=== PATIENT | female | born 1985 | race Caucasian/White ===

== ENCOUNTER 2016-11-26 16:19 | Emergency (ER) | payer MEDICAID, OTHER ==
[~2016-11-26] VITALS: Ht 162.6 cm; Wt 47.4 kg
[~2016-11-26 16:19] MED LIST: AMOX875 PO; FLUT50SP EACH NARE
[2016-11-26 16:38] VITALS: BP 112/68; PULSE 86; RESP 16; TEMP 98.3; O2SAT 100
[2016-11-26] MEDS ORDERED: SODIUM CHLOR 0.9% 1000 ML INJ 1,000 ML IV ONE (17:16)
--- NOTE | 2016-11-26 17:19 | PD ---
HPI Chief Complaint: Headache Time Seen by Provider: 17:16 Travel History International Travel<30 days: No Contact w/Intl Traveler<30days: No Traveled to known affect area: No History of Present Illness HPI 31-year-old female with history of migraine headaches, presents to the ER today for a 9 out of 10 headache that started on its own at around 2 PM accompanied by nausea, blurry vision, and photophobia. She denies any fevers, vomiting, stiff neck, or any other symptoms. She states that she has had migraine headaches in the past but usually they are not this bad. She denies any sick contacts. Modifying Factors: None Associated Signs & Symptoms: Headache, nausea, blurry vision Risk Factors: History of migraine headaches PFSH Past Medical History Medical History: Denies Significant Hx Diminished Hearing: No Immunizations Current: Yes Tetanus Vaccination: < 5 Years Influenza Vaccination: No ?: Not LMP: no menses on control and breast feeds : 2 Para: 1 Miscarriage: 1 Ovarian Cysts: Yes Past Surgical History Surgical History: No Previous Surgery Social History Alcohol Use: Yes (occ) Tobacco Use: No Substance Use: No Allergies-Medications (Allergen,Severity, Reaction): Coded Allergies: No Known Allergies (Verified , 11/26/16) Reported Meds & Prescriptions Reported Meds & Active Scripts Active Review of Systems Except as stated in HPI: all other systems reviewed are Neg Physical Exam Narrative GENERAL: Well-developed young white female patient in moderate distress. Awake and oriented 3. SKIN: Focused skin assessment warm/dry. HEAD: Atraumatic. Normocephalic. EYES: Pupils equal and round. No scleral icterus. No injection or drainage. Pupils are equal, round, reactive to light bilaterally. ENT: No nasal bleeding or discharge. Mucous membranes pink and moist. NECK: Trachea midline. No JVD. CARDIOVASCULAR: Regular rate and rhythm. No murmur appreciated. RESPIRATORY: No accessory muscle use. Clear to auscultation. Breath sounds equal bilaterally. GASTROINTESTINAL: Abdomen soft, non-tender, nondistended. Hepatic and splenic margins not palpable. MUSCULOSKELETAL: No obvious deformities. No clubbing. No cyanosis. No edema. NEUROLOGICAL: Awake and alert. No obvious cranial nerve deficits. Motor grossly within normal limits. Normal speech. PSYCHIATRIC: Appropriate mood and affect; insight and judgment normal. Data Data Last Documented VS Vital Signs Date Time Temp Pulse Resp B/P Pulse Ox O2 Delivery O2 Flow Rate FiO2 11/26/16 18:31 100 11/26/16 17:00 20 11/26/16 16:38 98.3 86 112/68 Orders Complete Blood Count With Diff (11/26/16 17:16) Comprehensive Metabolic Panel (11/26/16 17:16) Ct Brain W/O Iv Contrast(Rout) (11/26/16 17:16) Ecg Monitoring (11/26/16 17:16) Iv Access Insert/Monitor (11/26/16 17:16) Oximetry (11/26/16 17:16) Sodium Chloride 0.9% Flush (Ns Flush) (11/26/16 17:30) Diphenhydramine Inj (Benadryl Inj) (11/26/16 17:30) Metoclopramide Inj (Reglan Inj) (11/26/16 17:30) Sodium Chlor 0.9% 1000 Ml Inj (Ns 1000 M (11/26/16 17:16) Ed Urine Pregnancytest Poc (11/26/16 17:16) Urinalysis - C+S If Indicated (11/26/16 17:19) Labs Laboratory Tests Test 11/26/16 11/26/16 17:35 18:05 White Blood Count 6.6 TH/MM3 Red Blood Count 4.79 MIL/MM3 Hemoglobin 14.4 GM/DL Hematocrit 42.5 % Mean Corpuscular Volume 88.7 FL Mean Corpuscular Hemoglobin 30.0 PG Mean Corpuscular Hemoglobin 33.9 % Concent Red Cell Distribution Width 11.8 % Platelet Count 352 TH/MM3 Mean Platelet Volume 7.9 FL Neutrophils (%) (Auto) 80.2 % Lymphocytes (%) (Auto) 13.6 % Monocytes (%) (Auto) 4.7 % Eosinophils (%) (Auto) 1.2 % Basophils (%) (Auto) 0.3 % Neutrophils # (Auto) 5.3 TH/MM3 Lymphocytes # (Auto) 0.9 TH/MM3 Monocytes # (Auto) 0.3 TH/MM3 Eosinophils # (Auto) 0.1 TH/MM3 Basophils # (Auto) 0.0 TH/MM3 CBC Comment DIFF FINAL Differential Comment Sodium Level 142 MEQ/L Potassium Level 4.0 MEQ/L Chloride Level 106 MEQ/L Carbon Dioxide Level 26.5 MEQ/L Anion Gap 10 MEQ/L Blood Urea Nitrogen 19 MG/DL Creatinine 0.72 MG/DL Estimat Glomerular Filtration 96 ML/MIN Rate Random Glucose 97 MG/DL Calcium Level 9.0 MG/DL Total Bilirubin 0.7 MG/DL Aspartate Amino Transf 15 U/L (AST/SGOT) Alanine Aminotransferase 23 U/L (ALT/SGPT) Alkaline Phosphatase 101 U/L Total Protein 8.4 GM/DL Albumin 4.7 GM/DL Urine Color YELLOW Urine Turbidity HAZY Urine pH 6.0 Urine Specific [place] 1.027 Urine Protein NEG mg/dL Urine Glucose (UA) NEG mg/dL Urine Ketones 80 OR GREATER mg/dL Urine Occult Blood SMALL Urine Nitrite NEG Urine Bilirubin NEG Urine Leukocyte Esterase NEG Urine RBC 0-3 /hpf Urine WBC 0-2 /hpf Urine Squamous Epithelial 0-5 /hpf Cells Urine Mucus RARE /lpf Microscopic Urinalysis Comment CULT NOT INDICATED MDM Medical Decision Making Medical Screen Exam Complete: Yes Emergency Medical Condition: Yes Medical Record Reviewed: Yes Interpretation(s) Laboratory Tests Test 11/26/16 11/26/16 17:35 18:05 Neutrophils (%) (Auto) 80.2 % (16.0-70.0) Lymphocytes # (Auto) 0.9 TH/MM3 (1.0-4.8) Blood Urea Nitrogen 19 MG/DL (7-18) Total Protein 8.4 GM/DL (6.4-8.2) Urine Turbidity HAZY (CLEAR) Urine Ketones 80 OR GREATER mg/dL (NEG) Urine Occult Blood SMALL (NEG) Last [address] 11/26/16 [id number] Signed Impressions: Service Date/Time: Saturday, November 26, 2016 18:39 - CONCLUSION: No acute intracranial abnormality. Mild sinus disease. Lb Osullivan MD Differential Diagnosis Headache, nauseamigraine headaches versus dehydration versus viral syndrome versus meningitis versus acute intracranial processes Narrative Course Lab work did not indicate significant signs of sepsis, dehydration, or electrolyte abnormalities. Patient was given IV fluids, Reglan, and Benadryl in the ER. She states she is breast-feeding and I have warned her that Benadryl can cause sedation and that she probably should refrain from breast- feeding for the next day if she wants to wait that a factor for her baby. On reevaluation at 7 PM, she is feeling much improved. At this point, I have discussed the findings with her and CAT scan has returned showing a signs of acute intracranial processes. I think likelihood of meningitis or other acute intra-abdominal processes not picked up currently should be low. However, have discussed lumbar puncture with her and at this time, patient states that she wants to defer this study considering she is feeling much improved with just the migraine treatment. She states understanding that acute processes can be missed without further studies. The plan and the risks were discussed with the patient and she states understanding. Diagnosis Primary Impression: Migraine headache Med/Other Pt SpecificInfo: Prescription(s) given Scripts Ibuprofen (Motrin Ib)200 Mg [id number] Mg PO Q6H PRN (HEADACHE) #20 TAB Ref 0 Prov:Steven Ruvalcaba MD 11/26/16 Metoclopramide (Reglan)10 Mg Tab10 Mg PO QID PRN (HEADACHE) #20 TAB Ref 0 Prov:Steven Ruvalcaba MD 11/26/16 Disposition: 01 DISCHARGE HOME Condition: Stable Steven Ruvalcaba MD Nov 26, 2016 17:19
[2016-11-26] MEDS ORDERED: SODIUM CHLORIDE 0.9% FLUSH 10 ML FLUSH IVF PRN (17:30)
[2016-11-26] MEDS ORDERED: METOCLOPRAMIDE HCL 10 MG/2 ML VIAL IVP ONE (17:30)
[2016-11-26] MEDS ORDERED: diphenhydrAMINE HCL 50 MG/ML VIAL IVP ONE (17:30)
[2016-11-26 17:52] LABS: AUTOMATED NEUTROPHIL # 5.3 TH/MM3 (1.8-7.7); BASOPHIL % 0.3 % (0.0-2.0); EOSINOPHIL # 0.1 TH/MM3 (0-0.4); EOSINOPHIL % 1.2 % (0.0-4.0); HEMATOCRIT 42.5 % (35.0-46.0); HEMO FLAGS DIFF FINAL; LYMPH % 13.6 % (9.0-44.0); LYMPHOCYTE # 0.9 TH/MM3 (1.0-4.8); MEAN CELL VOLUME 88.7 FL (80.0-100.0); MEAN CORPUSCULAR HGB CONC 33.9 % (32.0-36.0); MONO % 4.7 % (0.0-8.0); NEUT % 80.2 % (16.0-70.0); PLATELET COUNT 352 TH/MM3 (150-450); RED BLOOD COUNT 4.79 MIL/MM3 (4.00-5.30); RED CELL DISTRIBUTION WIDTH 11.8 % (11.6-17.2); WHITE BLOOD COUNT 6.6 TH/MM3 (4.0-11.0)
[2016-11-26 18:00] LABS: CHLORIDE 106 MEQ/L (98-107); SODIUM (NA) 142 MEQ/L (136-145)
[2016-11-26 18:03] LABS: ANION GAP 10 MEQ/L (5-15); BICARBONATE 26.5 MEQ/L (21.0-32.0)
[2016-11-26 18:04] LABS: BLOOD UREA NITROGEN 19 MG/DL (7-18)
[2016-11-26 18:07] LABS: ALT (GPT) 23 U/L (10-53); AST (GOT) 15 U/L (15-37); GLOMERULAR FILTRATION RATE 96 ML/MIN (>89)
[2016-11-26 18:08] LABS: TOTAL BILIRUBIN ADULT 0.7 MG/DL (0.2-1.0)
[2016-11-26 18:09] LABS: ALKALINE PHOSPHATASE 101 U/L (45-117)
[2016-11-26 18:14] LABS: BLOOD, URINE SMALL (NEG); GLUCOSE,URINE NEG (NEG); NITRITE,URINE NEG (NEG)
[2016-11-26 18:21] LABS: KETONE, URINE 80 OR GREATER mg/dL (NEG)
[2016-11-26 18:22] LABS: COMMENT (UR) CULT NOT INDICATED; CULTURE IF INDICATED CULT NOT INDICATED; MUCUS URINE RARE /lpf (OCC); RBC, URINE 0-3 /hpf (0-3); SQUAMOUS EPITHELIAL CELL URINE 0-5 /hpf (0-5); URINE COLOR YELLOW (YELLW/STRAW); WBC, URINE 0-2 /hpf (0-5)
[2016-11-26 18:31] VITALS: O2SAT 100
--- NOTE | 2016-11-26 18:56 | RADHPO ---
EXAM DATE/TIME: 11/26/2016 18:39 [facility] COMPARISON: No previous studies available for comparison. INDICATIONS : Headache with blurred vision and dizziness. RADIATION DOSE: 60.35 CTDIvol (mGy) MEDICAL HISTORY : None SURGICAL HISTORY : None. ENCOUNTER: Initial ACUITY: 1 day PAIN SCALE: 9/10 LOCATION: frontal TECHNIQUE: Multiple contiguous axial images were obtained of the head. Using automated exposure control and adj ustment of the mA and/or kV according to patient size, radiation dose was kept as low as reasonably a chievable to obtain optimal diagnostic quality images. FINDINGS: CEREBRUM: The ventricles are normal for age. No evidence of midline shift, mass lesion, hemorrhage or acute in farction. No extra-axial fluid collections are seen. POSTERIOR FOSSA: The cerebellum and brainstem are intact. The 4th ventricle is midline. The cerebellopontine angle i s unremarkable. EXTRACRANIAL: Mild mucoperiosteal thickening seen of the paranasal sinuses. Small amount of debris seen in the righ t maxillary air cell. SKULL: The calvaria is intact. No evidence of skull fracture. CONCLUSION: No acute intracranial abnormality. Mild sinus disease. Lb Osullivan MD on November 26, 2016 at 18:53 Board Certified Radiologist. This report was verified electronically.
[2016-11-26] MEDS ORDERED: REGL10TA5 PO (19:13)
[2016-11-26] MEDS ORDERED: MOTR200T4 PO (19:13)
[2016-11-26 19:30] VITALS: BP 100/71
== END 2016-11-26 19:32 | disposition home or self-care (01) ==
LOC: PHED 16:19
DX: G43.909 Migraine, unspecified, not intractable, without status migrainosus (principal)
CPT/HCPCS: 70450; 80053; 81001; 84703; 85025; 96361; 96374; 96375; 99284; J1200; J2765; J7030

== ENCOUNTER 2017-11-09 08:27 | Emergency (ER) | payer SELFPAY ==
[~2017-11-09] VITALS: Ht 162.6 cm; Wt 52.6 kg
[~2017-11-09 08:27] MED LIST changes: -AMOX875 PO; -FLUT50SP EACH NARE; +MOTR200T4 PO; +REGL10TA5 PO
[2017-11-09 08:35] VITALS: BP 113/66; PULSE 88; RESP 16; TEMP 98.4; O2SAT 98
[2017-11-09] MEDS ORDERED: CHERSYP2 PO (09:07)
[2017-11-09] MEDS ORDERED: ZITHTAB PO (09:07)
--- NOTE | 2017-11-09 09:08 | PD ---
HPI Chief Complaint: Cold / Flu Symptoms Time Seen by Provider: 09:04 Travel History International Travel<30 days: No Contact w/Intl Traveler<30days: No Traveled to known affect area: No History of Present Illness HPI Patient presents with complaints of sinus pain and pressure, postnasal drip and sore throat for approximately 1 week. Subjective fever. Denies nausea vomiting or diarrhea. No new rashes. Denies . PFSH Past Medical History Diminished Hearing: No Immunizations Current: Yes ?: Not LMP: 10/20/17 : 2 Para: 1 Miscarriage: 1 Ovarian Cysts: Yes Social History Alcohol Use: Yes (occ) Tobacco Use: No Substance Use: No Allergies-Medications (Allergen,Severity, Reaction): Coded Allergies: No Known Allergies (Verified Adverse Reaction, Unknown, 11/09/17) Reported Meds & Prescriptions Reported Meds & Active Scripts Active No Active Prescriptions or Reported Medications Review of Systems General / Constitutional: Positive: Fever Eyes: No: Visual changes HENT: Positive: Sore Throat, No: Headaches Cardiovascular: No: Chest Pain or Discomfort Respiratory: No: Shortness of Breath Gastrointestinal: No: Abdominal Pain Genitourinary: No: Dysuria Musculoskeletal: No: Pain Skin: No Rash Neurologic: No: Weakness Psychiatric: No: Depression Endocrine: No: Polydipsia Hematologic/Lymphatic: No: Easy Bruising Physical Exam Narrative GENERAL: Well-nourished, well-developed patient. SKIN: Focused skin assessment warm/dry. HEAD: Normocephalic. EYES: No scleral icterus. No injection or drainage. Nares are erythematous and boggy tenderness over bilateral maxillary sinuses Throat mildly erythematous no adenopathy, positive postnasal drip NECK: Supple, trachea midline. No JVD or lymphadenopathy. CARDIOVASCULAR: Regular rate and rhythm without murmurs, gallops, or rubs. RESPIRATORY: Breath sounds equal bilaterally. No accessory muscle use. GASTROINTESTINAL: Abdomen soft, non-tender, nondistended. MUSCULOSKELETAL: No cyanosis, or edema. BACK: Nontender without obvious deformity. No CVA tenderness. Data Data Last Documented VS Vital Signs Date Time Temp Pulse Resp B/P (MAP) Pulse Ox O2 Delivery O2 Flow Rate FiO2 11/09/17 08:35 98.4 88 16 113/66 (82) 98 MDM Medical Decision Making Medical Screen Exam Complete: Yes Emergency Medical Condition: Yes Differential Diagnosis Pharyngitis, sinusitis, viral upper restaurant infection Narrative Course Assessment plan discussed patient at bedside. Diagnosis Primary Impression: Sinusitis Qualified Codes: J01.00 - Acute maxillary sinusitis, unspecified Patient Instructions: General Instructions Additional Instructions: Rest fluids and Motrin, encouraged nasal irrigation and salt water gargles, consider vitamin C and zinc to boost immune system. Follow-up with PCP. Return to emerge from with any onset of new symptoms. Med/Other Pt SpecificInfo: Prescription(s) given Scripts Guaifenesin-Codeine Liq (Cheratussin AC Liq) 100-10 Mg/5 Ml Syrp 10 ML PO Q4H Y for COUGH AND COLD SYMPTOMS, #120 ML 0 Refills Do not exceed 6 doses/24 hrs. Prov: Eduardo Holliday MD 11/09/17 Azithromycin (Zithromax Z-Kody) 250 Mg Dspk 250 MG PO DIRECTED for Infection, #1 DSPK 0 Refills 500 MG (2 tabs) day 1, then 1 tab days 2-5. Prov: Eduardo Holliday MD 11/09/17 Disposition: 01 DISCHARGE HOME Condition: Good Eduardo Holliday MD Nov 09, 2017 09:08
== END 2017-11-09 09:17 | disposition home or self-care (01) ==
LOC: PHED 08:27
DX: J32.9 Chronic sinusitis, unspecified (principal)
CPT/HCPCS: 99283